=== PATIENT | male | born 1965 | race Caucasian/White ===

== ENCOUNTER 2019-05-19 11:15 | Emergency (ER) | payer BC ==
[~2019-05-19] VITALS: Ht 190.5 cm; Wt 107.7 kg
[~2019-05-19 11:15] MED LIST: NORCO 325 MG-51 TAB PO
[2019-05-19 11:20] VITALS: TEMP 97.3
[2019-05-19] MEDS ORDERED: IBU600 MG PO (11:36)
[2019-05-19] MEDS ORDERED: MULTI VITAMINS1 TAB PO (11:42)
[2019-05-19] MEDS ORDERED: OMEGA-3 1000 MG1 CAP PO (11:42)
[2019-05-19] MEDS ORDERED: ASPIRIN 81M81 MG/TA2 PO (11:43)
[2019-05-19] MEDS ORDERED: NORCO 325 MG-51 TAB PO (12:16)
[2019-05-19 12:41] VITALS: BP 117/89; PULSE 77
[2019-05-20] MEDS ORDERED: PERCOCET 325 MG1 TA2 PO ×3 (05:05→16:01)
[2019-05-20] MEDS ORDERED: ZOCOR 10MG10 MG PO (12:47)
[2019-05-20] MEDS ORDERED: COLACE 100100 MG/CAP PO ×2 (13:51→16:01)
== END 2019-05-19 12:45 | disposition home or self-care (01) ==
LOC: COL.ER 11:15
DX: S52.501A Unspecified fracture of the lower end of right radius, initial encounter for closed fracture (principal); E78.5 Hyperlipidemia, unspecified; Z79.82 Long term (current) use of aspirin; Z79.1 Long term (current) use of non-steroidal anti-inflammatories (NSAID); V80.010A Animal-rider injured by fall from or being thrown from horse in noncollision accident, initial encounter
CPT/HCPCS: Q4050

== ENCOUNTER 2019-05-20 04:05 | Observation (INO) | payer BC ==
[~2019-05-20] VITALS: Ht 190.5 cm; Wt 110.0 kg
[~2019-05-20 04:05] MED LIST changes: +ASPIRIN 81M81 MG/TA2 PO; +IBU600 MG PO; +MULTI VITAMINS1 TAB PO; +OMEGA-3 1000 MG1 CAP PO
[2019-05-20] MEDS ORDERED: PERCOCET 325 MG1 TA2 PO ×3 (05:05→16:01)
[2019-05-20 10:54] VITALS: BP 130/77; PULSE 53; TEMP 97.9
[2019-05-20] MEDS ORDERED: ZOCOR 10MG10 MG PO (12:47)
--- NOTE | 2019-05-20 13:00 | NUR ---
Patient alert and oriented, answers questions appropriately. See assessment. Last oral intake 0700 this a.m. RUE with hard splint, JAKE and sling in place. C/o numbness to digits 2-4 right hand, able to wiggle fingers. C/o right knee pain, mild swelling noted, ice pack applied, will notify Dr Moscoso of knee pain. C/o pain / to RUE. No other c/o at this time.
[2019-05-20] MEDS ORDERED: COLACE 100100 MG/CAP PO ×2 (13:51→16:01)
--- NOTE | 2019-05-20 15:23 | NUR ---
Patient to surgery at this time.
--- NOTE | 2019-05-20 17:50 | NUR ---
Returns from surgery. Assessment unchanged except RUE with hard splint and sling CDI. RUE with numbness, unable to wiggle fingers. No c/o pain or discomfort.
[2019-05-20 17:51] VITALS: BP 117/52; PULSE 68; TEMP 98.1
[2019-05-20 18:05] VITALS: BP 108/70; PULSE 55; TEMP 98.1
[2019-05-20 18:20] VITALS: BP 117/67; PULSE 58
[2019-05-20 18:35] VITALS: BP 123/68; PULSE 65; TEMP 98.1
--- NOTE | 2019-05-20 19:38 | NUR ---
Discharge instructions reviewed with patient and family, verbalized understanding. Discharged via wheelchair to auto/home with family at 1900.
== END 2019-05-20 19:00 | disposition home or self-care (01) ==
LOC: COL.ER 04:05 → SURG 09:11
PROVIDERS: ADMIT Orthopaedic Surgery Sports Medicine
DX: S52.571A Other intraarticular fracture of lower end of right radius, initial encounter for closed fracture (principal); V80.010A Animal-rider injured by fall from or being thrown from horse in noncollision accident, initial encounter; E78.00 Pure hypercholesterolemia, unspecified; Z79.899 Other long term (current) drug therapy; Z79.82 Long term (current) use of aspirin; Z82.49 Family history of ischemic heart disease and other diseases of the circulatory system; Z83.3 Family history of diabetes mellitus
CPT/HCPCS: C1713; G0378; J0690; J1170; J2060; J2250; J2270; J2405; J2704; J3010; J7030; J7120; Q4050

== ENCOUNTER 2024-03-15 14:03 | Day surgery (SDC) | payer BC ==
[~2024-03-15] VITALS: Ht 190.5 cm; Wt 106.4 kg
[~2024-03-15 14:03] MED LIST changes: +COLACE 100100 MG/CAP PO; +Famotidine 20 MG TAB PO SCH; +LR 1,000 ML IV SCH; +PERCOCET 325 MG1 TA2 PO; +ZOCOR 10MG10 MG PO
[2024-03-15] MEDS ORDERED: fentaNYL 50 MCG/ML 2 ML VIAL ONE (14:45)
[2024-03-15] MEDS ORDERED: Lidocaine PF 2% (20 MG/ML) 5 ML VIAL ONE (14:46)
[2024-03-15] MEDS ORDERED: NS 10 ML IV ONE (14:47)
[2024-03-15] MEDS ORDERED: Glycopyrrolate 0.2 MG/ML 1 ML VIAL ONE (14:47)
[2024-03-15] MEDS ORDERED: Ketorolac 30 MG/ML VIAL ONE (14:47)
[2024-03-15] MEDS ORDERED: dexAMETHasone 10 MG/ML VIAL ONE (14:47)
[2024-03-15] MEDS ORDERED: Ondansetron 4 MG/2 ML VIAL ONE (14:47)
[2024-03-15 15:08] VITALS: BP 130/90; PULSE 79; TEMP 98.1
[2024-03-15] MEDS ORDERED: LIPITOR 10MG10 MG PO (15:18)
[2024-03-15] MEDS ORDERED: Ketorolac 15 MG/ML VIAL IV PRN (16:30)
[2024-03-15] MEDS ORDERED: oxyCODONE/Acetaminophen 5-325 MG TAB PO PRN (16:30)
[2024-03-15] MEDS ORDERED: Hyoscyamine 0.125 MG Sublingual TAB SL PRN (16:30)
[2024-03-15] MEDS ORDERED: Ondansetron 4 MG/2 ML VIAL IV PRN (16:45)
[2024-03-15] MEDS ORDERED: fentaNYL 50 MCG/ML 1 ML SYRINGE/VIAL [PACU/SDC ONLY] IV PRN (16:45)
[2024-03-15] MEDS ORDERED: HYDROmorphone 1 MG/1 ML SYRINGE [PACU/SDC ONLY] IV PRN (16:45)
[2024-03-15] MEDS ORDERED: Lidocaine 2% (20 MG/ML) 20 ML UROJET UR ONE (16:52)
[2024-03-15] MEDS ORDERED: PERCOCET 325 MG1 TA2 PO (17:10)
[2024-03-15 17:22] VITALS: BP 121/83; PULSE 64; TEMP 97.5
[2024-03-15 17:34] VITALS: TEMP 97.1
[2024-03-15 17:37] VITALS: BP 122/89; PULSE 64
[2024-03-15 17:52] VITALS: BP 121/80; PULSE 60
--- NOTE | 2024-03-15 18:00 | NUR ---
1722 RETURNS TO ROOM 8 PER CART. AWAKE, ALERT. RESP UNLABORED. HOB ELEVATED 75 DEGREES. ABD SOFT. DENIES PAIN OR URINARY URGENCY. VITAL SIGNS OBTAINED. IN ROOM. 1735 TOLERATES PO JUICE AND MUFFIN WITHOUT NAUSEA 1740 DISCHARGE INSTRUCTIONS REVIEWED. PATIENT VERBALIZES UNDERSTANDING. COPY PROVIDED IN DISCHARGE FOLDER 1755 AMBULATES TO BATHROOM WITH STANDBY ASSIST. ADMITS TO URINATING WITHOUT DIFFICULTY. LIGHT PINK URINE. DRESSES SELF
== END 2024-03-15 18:03 | disposition home or self-care (01) ==
LOC: SDCO 14:03
DX: N20.1 Calculus of ureter (principal)
CPT/HCPCS: C1769; C2617; J0690; J1100; J1885; J2405; J2704; J3010; J7120